=== PATIENT | male | born 1945 | race Caucasian/White ===

== ENCOUNTER → 2022-04-17 | Day surgery (SDC) | payer MEDICARE ==
[~2022-04-17] VITALS: Ht 165.1 cm; Wt 62.6 kg
[~2022-04-17] MED LIST: ASPIRIN81 M1 PO; NORVASC10 MG PO; PROSCAR5 M1 PO; VENT7GM INH; ZESTRIL40 MG PO
[2022-04-17 11:09] VITALS: BP 133/52
[2022-04-17 13:07] VITALS: BP 133/78
[2022-04-17 13:20] VITALS: BP 140/65
[2022-04-17 13:32] VITALS: BP 140/65
== END | disposition home or self-care (01) ==
LOC: SDC 04-12 14:00
PROVIDERS: ATTEND Ophthalmology
DX: H25.812 Combined forms of age-related cataract, left eye (principal); I10 Essential (primary) hypertension; J44.9 Chronic obstructive pulmonary disease, unspecified; F17.210 Nicotine dependence, cigarettes, uncomplicated; Z79.899 Other long term (current) drug therapy

== ENCOUNTER → 2022-06-19 | Day surgery (SDC) | payer MEDICARE ==
[~2022-06-19] VITALS: Ht 165.1 cm; Wt 62.6 kg
[2022-06-19 11:32] VITALS: BP 131/64
[2022-06-19 15:08] VITALS: BP 122/81
[2022-06-19 15:23] VITALS: BP 130/70
[2022-06-19 15:32] VITALS: BP 128/67
== END | disposition home or self-care (01) ==
LOC: SDC 06-14 14:00
PROVIDERS: ATTEND Ophthalmology
DX: H25.811 Combined forms of age-related cataract, right eye (principal); I10 Essential (primary) hypertension; J44.9 Chronic obstructive pulmonary disease, unspecified; F17.210 Nicotine dependence, cigarettes, uncomplicated; Z79.899 Other long term (current) drug therapy